=== PATIENT | female | born 1945 | race Caucasian/White ===

== ENCOUNTER 2018-09-23 10:17 | Outpatient (REF) | payer OTHER, SELFPAY | END 2018-09-23 10:37 | LOC: NCHCN 10:17 | PROVIDERS: PCP Family Medicine; Visit Provider Nurse Practitioner Family | DX: R39.15 Urgency of urination (principal) | CPT/HCPCS: 87077; 87086 ==

== ENCOUNTER 2020-07-06 19:44 | Outpatient (REF) | payer OTHER, SELFPAY ==
[2020-07-06 21:29] LABS: Calculated LDL 158 mg/dL (<100); Cholesterol 226 mg/dL (<200); HDL Cholesterol 55 mg/dL (40-60); Triglyceride 68 mg/dL (<150)
== END 2020-07-06 20:04 ==
LOC: NCHCN 19:44
PROVIDERS: PCP Family Medicine; Visit Provider Family Medicine
DX: Z71.1 Person with feared health complaint in whom no diagnosis is made (principal); Z12.39 Encounter for other screening for malignant neoplasm of breast; Z13.220 Encounter for screening for lipoid disorders
CPT/HCPCS: 80061

== ENCOUNTER 2021-06-30 13:51 | Outpatient (REF) | payer MEDICARE, SELFPAY ==
[2021-06-30 15:18] LABS: HCT 41.7 % (36.0-46.0); HGB 13.3 g/dL (11.2-15.7); MCHC 31.9 % (32.0-36.0); MCV 94.1 fL (80-95); MPV 9.1 fL (8.0-11.0); Platelet Count 352 10^3/uL (130-400); RBC 4.43 10^6/uL (3.93-5.22); RDW-SD 42.1 fL; WBC 7.87 10^3/uL (4.4-10.8)
[2021-06-30 15:22] LABS: ESR 35 mm/hr (0-30)
[2021-06-30 15:43] LABS: ALT 29 U/L (14-59); AST 20 U/L (15-37); Albumin 3.8 g/dL (3.4-5.0); Alkaline Phosphatase 127 U/L (46-116); Anion Gap 11.3 mmol/L (3-11); BUN 13 mg/dL (7-18); Bilirubin, Total 0.3 mg/dL (0.2-1.0); CO2 24.7 mmol/L (21.0-32.0); CREATININE 0.6 mg/dL (0.55-1.02); Calcium 8.9 mg/dL (8.5-10.1); Calculated LDL 106 mg/dL (<100); Chloride 101 mmol/L (98-107); Cholesterol 168 mg/dL (<200); Glucose 86 mg/dL (74-106); HDL Cholesterol 53 mg/dL (40-60); Potassium 4.2 mmol/L (3.5-5.1); Sodium 137 mmol/L (136-145); TSH (W/Ref FT4) 1.87 uIU/mL (0.36-3.74); Triglyceride 49 mg/dL (<150)
[2021-07-02 00:14] LABS: IgG Immunoblot Negative (Negative); IgM Immunoblot Negative (Negative)
== END 2021-06-30 13:52 | disposition home or self-care (01) ==
LOC: LBN 13:51
PROVIDERS: PCP Family Medicine; Visit Provider Family Medicine
DX: R53.83 Other fatigue (principal); M25.59 Pain in other specified joint; Z13.220 Encounter for screening for lipoid disorders
CPT/HCPCS: 80053; 80061; 85027; 85652; 86617; 84443

== ENCOUNTER 2025-04-29 14:24 | Outpatient (REF) | payer MEDICARE, SELFPAY ==
[2025-04-29 21:51] LABS: ALT 32 U/L (14-59); AST 29 U/L (15-37); Albumin 3.9 g/dL (3.4-5.0); Alkaline Phosphatase 152 U/L (46-116); Anion Gap 9.3 mmol/L (3-11); BUN 22 mg/dL (7-18); Bilirubin, Total 0.3 mg/dL (0.2-1.0); CO2 28.7 mmol/L (21.0-32.0); Calcium 9.2 mg/dL (8.5-10.1); Chloride 99 mmol/L (98-107); Estimated GFR 94.17 (mL/min/1.73m2); Glucose 108 mg/dL (74-106); Potassium 4.9 mmol/L (3.5-5.1); Sodium 137 mmol/L (136-145); TSH 2.42 uIU/mL (0.36-3.74); Total Protein 7.2 g/dL (6.4-8.2); Vitamin B12 1195 pg/mL (193-986)
[2025-04-30 14:51] LABS: Vitamin D 25 Total 71 ng/mL (30-100)
== END 2025-04-29 14:25 | disposition home or self-care (01) ==
LOC: NCHCN 14:24
PROVIDERS: PCP Family Medicine; Visit Provider Family Medicine
DX: F03.A4 Unspecified dementia, mild, with anxiety (principal); R74.8 Abnormal levels of other serum enzymes
CPT/HCPCS: 80053; 82306; 82607; 84443